=== PATIENT | male | born 1965 | race Caucasian/White ===

== ENCOUNTER 2024-11-11 05:02 | Observation (INO) | payer OTHER, SELFPAY ==
[2024-11-11] VITALS (15 sets, daily range): BP systolic 101–152; BP diastolic 62–94; BMI 30.3
--- NOTE | 2024-11-11 02:58 | ED.GENMED ---
History of Present Illness
General
Chief Complaint: Cardiac Symptoms
Source: patient and significant other
Time Seen by Provider: 11/11/24 02:36
Nursing documentation reviewed up to this point in time: agreed with
History of Present Illness
History of Present Illness:
Pleasant 59-year-old male presents to the emergency department with feelings of lightheadedness and feeling faint. He states that he felt his heart rate was irregular this afternoon. He does have a remote history of paroxysmal atrial fibrillation.
He is not maintained on any anticoagulation. He does take metoprolol. Patient states that he had 2 alcoholic beverages. He felt better and went to bed around 11 PM. At 2 AM he awakened with worsening symptoms. Denies fever, chills, nausea or
vomiting. He denies any pain but states that he feels that his heart is not pumping correctly.
Past History
Past History
ED Past Medical History: HTN
ED Past Surgical History: None
Social History
Tobacco: Non-smoker
Alcohol: Occasional
Phy Exam
Physical Exam
Physical Exam:
Physical Exam
Vital signs and allergy list reviewed and agreed with.
GENERAL: Alert , in [default value] apparent distress
EYE: pupils equal, EOMI, anicteric
NECK: Supple, no significant adenopathy. No masses. Trachea midline
ENT: Oropharynx is clear, mmm.
CARDIAC: Bradycardic rate and sinus rhythm . No M/R/G
LUNGS: Clear breath sounds bilaterally, no acute respiratory distress, no wheezes/rales/rhonchi
ABDOMEN: Soft, without focal tenderness, no r/g, no cvat. Normal BSx4q
NEUROLOGICAL: Alert and oriented, no focal neuro deficits
SKIN: Warm and dry, skin intact.
MUSCULOSKELETAL: No edema, well perfused. Moves all 4 extremities
PSYCH: Normal and appropriate interaction.
Course
Orders/Labs/Results
Orders:
Orders
11/11/24 02:34
Electrocardiogram (*1) Urgent
Reason for Study: Chest Pain
Cardiac Monitoring- Treatment ONCE
EKG- Treatment ONCE
IV Insert/Care/Rem.- Treatment PRN
11/11/24 02:42
Complete Blood Count/With Diff Urgent
Comprehensive Metabolic Panel Urgent
Troponin I Urgent
11/11/24 04:11
Admit/Transfer Patient As Directed
Co-Sign Provider:
Level of Care: Observation services
Assign to:: Telemetry
Physician / Group: Julio
Diagnosis: Bradycardia
Reason for Telemetry: Arrhythmia
Date to Stop Telemetry: 11/14/24
Time to Stop Telemetry: 11:00
PRN Pain Medication Management As Directed
May give lesser potent ordered pain med per pt: Yes
preference::
Protocol:: Medication orders for pain may be administered in a
manner that supports deferring to patient preference
when the pt is:
- Requesting an ordered lesser potent pain medication.
Least to most potent pain medications are defined
as: acetaminophen < NSAID < tramadol < opioids
(morphine, oxycodone, hydromorphone).
- Requesting a lesser dose of the same medication IF
ORDERED.
- Requesting a less intrusive route of administration
if both routes are prescribed by the provider (PO <
IV).
11/11/24 04:12
Code Status As Directed
Resuscitation Status: Full Code
11/11/24 05:13
0.9% Sodium Chloride [Nss (Preservative Free)] See Protocol IV PRN PRN
Acetaminophen [Tylenol] 650 mg PO Q4HPRN PRN
FOLic ACID [Folvite] 1 mg 0.9% Sodium Chloride 50 ml [Nss] 50 ml IV DAILYPRN
Lactated Ringers [Lr] 1,000 ml IV 125 mls/hr
Lorazepam [Ativan] 1 mg IV Q1HPRN PRN
Lorazepam [Ativan] 1 mg PO Q2HPRN PRN
Lorazepam [Ativan] 2 mg IV Q1HPRN PRN
11/11/24 05:13
CARDIOLOGY CONSULT Routine
Consulting Provider: Alida May
Was physician already notified: Yes
Reason for consult: Bradycardia
Case Management Consult Once
Case Management Consult: Other
Comment: Substance abuse counseling
DIETARY CONSULT Routine
Reason for Consult: Nutrition support, possible refeeding guidelines
Activity As Directed
Activity Level: Bedrest
EKG with chest pain [ECG as needed] As Directed
ECG as needed for:: Chest Pain
I/O [Intake/ Output] As Directed
Frequency: Per unit guidelines
MSAS SCORE As Directed
MSAS Score 0-4: Repeat MSAS every 2 hours until 0-4 for three consecutive assessments, then every 4 hours x 48
hours.
MSAS Score 5-7: For MILD withdrawl symptoms. Repeat MSAS and RASS every 2 hours
MSAS Score 8-11: For MODERATE withdrawal symptoms. Repeat MSAS and RASS every 1 hour. Consider ICU or IMU
level of care.
MSAS Score > 11: For SEVERE withdrawal symptoms. Repeat MSAS and RASS every 1 hour. Notify provider, consider
ICU level of care.
MSAS Additional Instructions: If no improvement or no decrease in score from severe to moderate within 12
hours, consult psychiatry
MSAS Notify Provider: Notify provider if patient requires more than 10 mg of Lorazepam in eight hour period.
Orthostatic Vital Signs As Directed
Orthostatic VS Frequency: BID
Pneumatic Compression Sleeves As Directed
Type: Knee high
Vital Signs As Directed
Frequency: Per unit guidelines
Weight As Directed
Frequency: Daily
Oxygen Therapy [O2 Therapy] [RESP] Routine
Titrate/Wean O2 to maintain O2 sat greater than (%): 94
DX Deep Vein Thrombosis Video Routine
11/11/24 05:23
Basic Metabolic Panel IN AM
Complete Blood Count/No Diff IN AM
Magnesium Urgent
TSH Reflex To Free T4 Routine
Troponin I Q6H
11/11/24 Breakfast
Regular
At Your Request: Full Participation
11/11/24 08:00
Apixaban [Eliquis] 5 mg PO BID
FOLic ACID [Folvite] 1 mg PO DAILY
Thiamine Injection 200 mg IV Q12
11/14/24 08:00
Thiamine HCl [Vitamin B1] 100 mg PO BID
11/14/24 11:00
DC Protocol for Telemetry ONCE
Abnormal Lab Results
11/11/24
02:42
MCH 31.8 H pg
(27.0-31.0)
Absolute Monos (auto) 0.7 H 10^3/uL
(0.1-0.6)
Monocytes % 10.2 H %
(1.7-9.3)
11/11/24 02:42
11/11/24 02:42
Vital Signs
Initial and Last Documented VS:
Initial Vital Signs
Temp Pulse Resp BP Pulse Ox
97.4 F 50 14 152/88 100
11/11/24 02:35 11/11/24 02:35 11/11/24 02:35 11/11/24 02:35 11/11/24 02:35
Last Documented Vital Signs
Temp Pulse Resp BP Pulse Ox
97.8 F 53 19 112/81 98
11/11/24 07:15 11/11/24 15:00 11/11/24 15:00 11/11/24 14:00 11/11/24 07:21
*Critical Care Note
Total Time (30-74mins, 75-104mins- exclusive of procedures): Not Applicable
Update Note
Update Note:
Spoke with Alida Cade, cardiology who recommended that patient be brought into the hospital with fluids. Hold metoprolol.
ED Attending Note
-
Portions of this chart may have been created with voice recognition software.� Occasional wrong word or��sound alike� substitutions may have occurred due to the inherent limitations of voice recognition software.
Discharge Plan
Departure
Patient Disposition: Admit
Date of Disposition: 11/11/24
Time of Disposition: 04:02
Presentation/result/management discussed w/ accepting MD/DO: Hospitalist
Condition: Good
Discharge Problem:
Symptomatic bradycardia
Interventions
Interventions:
*Risk Screen - Suicide Last Done: 11/11/24 02:35
*General Assessment Last Done: 11/11/24 02:39
*Neglect/Abuse Screening Last Done: 11/11/24 02:39
ED- Fall Risk Assessment Last Done: 11/11/24 02:39
*ED COVID-19 Vaccine History Last Done: 11/11/24 02:39
*Nursing Disposition Last Done: 11/11/24 15:08
ED- Pulmonary Assessment Last Done: 11/11/24 02:48
ED- Cardiac Assessment Last Done: 11/11/24 02:48
Discharge Date and Time
Discharge Date/Time: 11/11/24 15:09
[2024-11-11 02:59] LABS: % Basophils 0.6 % (0-2); % Eosinophils 3.3 % (0-6); % Immature Granulocytes 0.1 % (0-0.5); % Lymphocytes 43.6 % (20.5-51.1); % Monocytes 10.2 % (1.7-9.3); % Neutrophils 42.2 % (42.2-75.2); Absolute Eosinophils 0.2 10^3/uL (0-0.7); Absolute Monocytes 0.7 10^3/uL (0.1-0.6); Absolute Neutrophils 2.9 10^3/uL (1.4-6.5); Hematocrit 45.5 % (39.0-52.0); Hemoglobin 15.7 g/dL (13.0-18.0); Mean Corp Hgb Conc. 34.5 g/dL (33.0-37.0); Mean Corpuscular Hgb 31.8 pg (27.0-31.0); Mean Corpuscular Volume 92.3 fL (80.0-94.0); Mean Platelet Volume 10.4 fL (7.4-10.4); Nucleated Red Blood Cells % 0 % (-); Platelet Count 246 10^3/uL (130-400); Red Blood Cell Count 4.93 10^6/uL (4.70-6.10); Red Cell Dist. Width 12.4 % (11.5-14.5)
[2024-11-11 03:20] LABS: ALT (SGPT) 41 U/L (0-50); AST (SGOT) 34 U/L (17-59); Albumin 4.3 g/dl (3.5-5.0); Alkaline Phosphatase 79 U/L (38-126); Blood Urea Nitrogen 15 mg/dl (9-20); Calcium 10.1 mg/dl (8.4-10.2); Carbon Dioxide 27 mmol/L (22-30); Chloride 103 mmol/L (98-107); Estimated Creatinine Clearance 99 ml/min; Glucose 97 mg/dl (70-99); Sodium 138 mmol/L (135-145); Total Bilirubin 0.6 mg/dl (0.2-1.3); Total Protein 6.9 g/dl (6.3-8.2); eGFR > 60.00
[2024-11-11 03:33] LABS: Troponin I < 0.012 ng/ml
--- NOTE | 2024-11-11 04:13 | HPS.HSE ---
Family Physician
-
Family Physician: Kingsley Garcia
Chief Complaint
-
Lightheaded
History of Present Illness
Patient is a 59y M with PMH significant for A-Fib who presents to ED complaining of lightheadedness. Patient states that he developed some palpitations around dinner this evening. He had intermittent palpitations throughout the evening, but
states that he felt well when he went to bed. Patient woke in the middle of the night with recurrent palpitations and feeling very cold. He got up to use the bathroom and felt very lightheaded. He did not fall or lose consciousness. He developed
tingling in his hands and the lightheadedness persisted, prompting him to present to the ED for further evaluation.
Patient states that he had two beers this evening. He typically has 2-3 / day on weekdays. 5-6 daily on weekends.
He took his usual Eliquis and Toprol doses around 9PM this evening.
Patient feels less lightheaded here in the ED while lying supine. He continues to have occasional palpitations.
Medical History
Past Medical History
Past Medical History: Reports Other
Additional Past Medical History:
Paroxysmal Atrial Fibrillation
Past Surgical History: Reports Other
Additional Past Surgical History:
Right TKA x 2
Knee Arthroscopies
Left Foot Surgery
Left Wrist Surgery
Social History
Tobacco: Non-smoker
Alcohol: Daily
Drug: None
Personal:
Living: With Family
Family History
Family History: Other (Mother: Hypertension Father: Pancreatic Cancer)
Allergies / Home Medications
Allergies reflects when Allergies were last updated in [employer].
Home Medications with original date entered in [employer]
Allergy/Medication List:
Allergies
Allergy/AdvReac Type Severity Reaction Status Date / Time
amoxicillin Allergy Rash Verified 11/11/24 02:34
Home Medications
metoprolol succinate 25 mg tablet,extended release 24 hr (Toprol XL) 25 mg PO BID #60 tabs 10/21/22
apixaban 5 mg tablet (Eliquis) 5 mg PO BID 11/11/24
Review of Systems
-
History Source: Patient
A 12 point ROS was completed and negative except as noted: Yes
Constitutional: Reports Fatigue and Chills; Denies Fever
EENT: Denies Sore Throat
Respiratory: Denies Cough or Trouble Breathing
Cardiac: Reports Palpitations and Other (lightheaded); Denies Chest Pain or Diaphoresis
Abdomen/GI: Denies Abdominal Pain, Nausea, Vomiting or Diarrhea
: Denies Dysuria or Frequency
Musculoskeletal: Denies Joint Pain or Edema
Neurological: Reports Dizzy; Denies Headache
Psych: Denies Depression or Anxiety
Physical Exam
Vital Signs
Vital Signs
Temp Pulse Resp BP Pulse Ox
97.4 F 44 9 129/83 100
11/11/24 02:35 11/11/24 03:00 11/11/24 03:00 11/11/24 03:00 11/11/24 02:35
Physical Exam
General: Other (59y M in no acute distress.)
HEENT: Moist mucous membranes and PERRLA
Respiratory: Clear; No Wheezes, Rales or Rhonchi
Cardiac: S1/S2 and Bradycardia (with ectopy); No Murmur
GI: Soft, Non Tender, Non Distended and Normal Bowel Sounds
Musculoskeletal: No Clubbing, No Cyanosis and No Edema
Neuro: AO x 3 and Nonfocal/grossly intact
Laboratory Results
-
11/11/24 02:42
11/11/24 02:42
Laboratory Results
Total Bilirubin 0.6 mg/dl (0.2-1.3) 11/11/24 02:42
AST 34 U/L (17-59) 11/11/24 02:42
ALT 41 U/L (0-50) 11/11/24 02:42
Alkaline Phosphatase 79 U/L (38-126) 11/11/24 02:42
Troponin I < 0.012 ng/ml 11/11/24 02:42
Impression/Plan
-
A/P: Patient is a 59y M with PMH significant for A-Fib who presents to ED for evaluation of palpitations and lightheadedness.
Lightheadedness
Symptomatic Bradycardia
- Observe overnight on classroom monitor.
- Heart rates in the ED in the 40s at times.
- Patient does state that he has a 'low resting heart rate' at baseline.
- Not hypotensive, no other evident etiology of his symptoms.
- EKG / tele shows sinus bradycardia with occasional PACs / ectopy.
- Hold Toprol for now.
- Cardiology eval in AM for additional recommendations.
- IVFs overnight.
- Follow for new / worsening symptoms.
Paroxysmal Atrial Fibrillation
- Currently in sinus yannick.
- Continue Eliquis for stroke risk reduction.
- Holding Toprol for now as noted above.
DVT Prophylaxis: On Eliquis
Code Status: Full
[2024-11-11 05:33] LABS: Hematocrit 42.6 % (39.0-52.0); Hemoglobin 14.6 g/dL (13.0-18.0); Mean Corp Hgb Conc. 34.3 g/dL (33.0-37.0); Mean Corpuscular Hgb 31.3 pg (27.0-31.0); Mean Corpuscular Volume 91.4 fL (80.0-94.0); Mean Platelet Volume 10.1 fL (7.4-10.4); Platelet Count 241 10^3/uL (130-400); Red Blood Cell Count 4.66 10^6/uL (4.70-6.10); Red Cell Dist. Width 12.5 % (11.5-14.5)
[2024-11-11 06:03] LABS: Troponin I < 0.012 ng/ml
[2024-11-11 06:10] LABS: Blood Urea Nitrogen 14 mg/dl (9-20); Calcium 10.1 mg/dl (8.4-10.2); Carbon Dioxide 26 mmol/L (22-30); Chloride 104 mmol/L (98-107); Estimated Creatinine Clearance 109 ml/min; Glucose 97 mg/dl (70-99); Magnesium 2.1 mg/dl (1.6-2.3); Potassium 4.5 mmol/L (3.5-5.1); Sodium 135 mmol/L (135-145); eGFR > 60.00
[2024-11-11] MEDS: LR 1000 IV (06:23)
[2024-11-11] MEDS: FLUSH (NSS) 1 FLUSH IV (06:24)
[2024-11-11 06:39] LABS: TSH Reflex To Free T4 0.76 uIU/ml (0.47-4.68)
[2024-11-11] MEDS: FOLVITE 1 MG PO (08:19)
[2024-11-11] MEDS: THIAMINE INJECTION 200 MG IV (08:19)
[2024-11-11] MEDS: ELIQUIS 5 MG PO (08:19)
--- NOTE | 2024-11-11 09:37 | W.PN.UPDATE ---
Update Note
Progress Note Update
Admitted this morning by Dr. Kim for lightheadedness.
Patient developed palpitations last night followed by lightheadedness when he tries to get up in the middle of the night and go to the bathroom. His lightheadedness persisted even at rest. He noticed that while he was in the ER.
Currently lying in his bed in the ER. He has no lightheadedness. No palpitations. Heart monitor shows sinus bradycardia with heart rates in 40s. Blood pressure stable. + S1 plus S2 heard regular
Lab work including troponins are all within the normal limits. TSH normal.
Patient does drink coffee around 40 ounces of coffee a day which is lower than what he was doing before but also takes 2-3 beer daily and 5-6 beers on the weekend. He has noticed some increased intake this week. A month ago he had a respiratory
illness.
History of paroxysmal atrial fibrillation noted.
Based on the history suspect tachybradycardia syndrome. Await cardiology input.
For now continue to hold beta-boaz. Echo happening this morning.
Consider outpatient Holter.
DC home when okay from cardiology standpoint.
--- NOTE | 2024-11-11 09:52 | CON.CAR ---
Addendum entered and electronically signed by Zoltan Magaña DO 11/11/24 14:39:
I saw and examined the patient.
The Ginseng Farmer's note was reviewed and I agree with the note.
Comment:
GENERAL: no acute distress
EYE: sclera anicteric
NECK: Supple, no JVD, no carotid bruit appreciated
ENT: normal nose, moist mucosal membranes
CARDIAC: Bradycardic rate, regular rhythm, +S1/S2, no murmur, rubs, or gallops
CHEST/PULMONARY: Normal effort, clear breath sounds
ABDOMEN: Soft, without focal tenderness or distention
NEUROLOGICAL: Alert and oriented x3
SKIN: Warm and dry, no rash
PSYCH: Normal and appropriate interaction.
Telemetry demonstrates sinus bradycardia occasional PAC/brief PAT no more than 4 beats
A/P as below
PCP: Kingsley Garcia
Baffle Installer: Harry Taylor
Impression:
Presented 11/11/2024 with palpitations, dizziness, lightheadedness
Sinus bradycardia, unclear if symptomatic. Patient has longstanding history of asymptomatic sinus bradycardia
Paroxysmal atrial fibrillation
Chronic anticoagulation on Eliquis
Hypertension
Hyperlipidemia
Echo 07/26/2021: [facility]: LV: Normal size and funciton. EF 64%. No WMA. RV: Normal, LA: Normal, RA: Normal, MV: Mild MR, AV: Normal, TV: Normal
Echo 11/11/2024: Normal LV size, wall thickness, and systolic function, EF 50-55%, mild MR, trace TR, normal pericardium without effusion, mildly dilated aortic root, normal ascending aorta
PET Nuclear Stress 07/26/2021: [facility]: Preop knee. PET myocardial perfusion: Normal. ECG Nonspecific changes. EF : Normal 64%.
Plan:
Presented 11/11/2024 with palpitations, dizziness, lightheadedness and noted to have heart rates in 30s to 40s beats per minute as well as complaints of palpitations
-Concern for symptomatic bradycardia with sinus arrhythmia/PACs.
-Patient maintained on Toprol 25 mg twice a day as outpatient. Beta-boaz was held temporarily in past due to fatigue and noted worsening palpitations so resumed.
-Patient admits to having heart rate in 40s at baseline. Would consider reducing Toprol to 25 mg once a day
-TSH 0.76
-Continue to monitor on telemetry with consideration of outpatient monitor
-Blood pressure is reasonably controlled
-Continue Eliquis for history of PAF
-Normal troponin x 2
Additionally discussed at length with patient regarding importance of significant reduction in alcohol as this may notably contribute to atrial arrhythmias but may also dehydrate given alcohol's effect on ADH. This may have led to patient's
symptoms overnight which could have been related to dehydration. Patient states that he does not drink water during the day or hydrate. Patient reports significant improvement in symptoms during hospitalization in the emergency department after
receiving IV fluids and oral hydration. Review of telemetry demonstrates no evidence of significant bradycardia no reported evidence of atrial fibrillation.
Echocardiogram demonstrates normal heart function without significant valvular disease.
Lab work and evaluation unremarkable. Patient stable for discharge from cardiovascular standpoint with recommended follow-up on Thursday for event monitor followed by follow-up in the office. If new or worsening symptoms, patient to proceed back to
the emergency department for further evaluation. Patient verbalized understanding.
Original Note:
Consultation
Consultation Request
Date/Time Consultation Requested: 11/11/2024
Date/Time Consultation Performed: 11/11/2024
Requesting Provider: Dr. Kim
Performing Provider: Vane Dunne PA-C for Dr. Magaña
Reason for Consultation: Symptomatic bradycardia
Medical History
-
History of Present Illness:
Patient is a 57-year-old male with past medical history of paroxysmal atrial fibrillation, hypertension and mixed hyperlipidemia who presented to emergency department on 11/11/2024 with complaints of intermittent palpitations associated with
dizziness/lightheadedness. Patient reports last evening he was watching TV after having a few beers and noted some missed or skipped beats. He then went to sleep and awoke in the middle of the night to go to the bathroom and noted
lightheaded/dizziness as well as palpitations. Palpitations were very different than his prior atrial fibrillation. He then developed numbness and tingling in his hands and lightheaded sensation persisted prompting him to come to emergency
department. EKG showed sinus bradycardia with sinus arrhythmia, PACs. Heart rates were noted to be 30s to 40s on telemetry. He continued to have lightheaded sensation with normal blood pressure. Troponin negative x 2. Patient was provided IV
hydration with some improvement of symptoms. At time of this evaluation patient symptomatically has improved and denies chest pain, shortness of breath, dizziness or lightheadedness. He still feels occasional intermittent palpitations.
In past patient complained of fatigue and beta-boaz was discontinued but he noticed worsening palpitations and resumed taking 25 mg twice a day of Toprol. He remains on chronic anticoagulation with Eliquis.
Past medical history:
Paroxysmal atrial fibrillation
Chronic anticoagulation on Eliquis
Hypertension
Hyperlipidemia
Past Medical History
Past Medical History: Other (See HPI)
Past Surgical History: Orthopedic (Right TKA x 2, left foot surgery, left wrist surgery)
Social History
Tobacco: Non-Smoker
Alcohol: Daily (2-3 beers most nights of the week, 5 -6 beers on weekend days)
Drug: None
Personal:
Employment: Employed
Family History
Family History: Cancer (Father pancreatic cancer) and Hypertension (Mother)
Allergies / Home Medications
Allergy/AdvReac Type Severity Reaction Status Date / Time
amoxicillin Allergy Rash Verified 11/11/24 02:34
�Medication �Instructions �Recorded �Confirmed �Type
metoprolol succinate 25 mg 25 mg PO BID #60 tabs 10/21/22 11/11/24 Rx
tablet,extended release 24 hr
(Toprol XL)
apixaban 5 mg tablet (Eliquis) 5 mg PO BID 11/11/24 11/11/24 History
calcium carbonate (Tums) 200 mg PO DAILYPRN PRN heart burn 11/11/24 11/11/24 History
Review of Systems
-
History Source: Patient
All other systems: Negative unless noted
Physical Exam
Vital Signs
Temp Pulse Resp BP Pulse Ox
97.8 F 48 16 129/94 98
11/11/24 07:15 11/11/24 09:00 11/11/24 09:00 11/11/24 09:00 11/11/24 07:21
GEN: No distress, awake, Ox3
HEENT: supple, anicteric, mmm
LUNGS: CTA, no wheezes/rales
CV: Reg, S1/S2, no murmur, rub or gallop
ABD: soft, BS+, NT/ND
EXT: No edema, clubbing or cyanosis
NEURO: Gross non-focal
SKIN: No rash, warm, dry, pink
Lab Results
11/11/24 05:23
11/11/24 05:23
Troponin I Cancelled 11/11/24 11:13
Impression / Plan
-
PCP: Kingsley Garcia
Baffle Installer: Harry Taylor
Impression:
Presented 11/11/2024 with palpitations, dizziness, lightheadedness
Symptomatic bradycardia
Paroxysmal atrial fibrillation
Chronic anticoagulation on Eliquis
Hypertension
Hyperlipidemia
Echo 07/26/2021: [facility]: LV: Normal size and funciton. EF 64%. No WMA. RV: Normal, LA: Normal, RA: Normal, MV: Mild MR, AV: Normal, TV: Normal
PET Nuclear Stress 07/26/2021: [facility]: Preop knee. PET myocardial perfusion: Normal. ECG Nonspecific changes. EF : Normal 64%.
Plan:
Presented 11/11/2024 with palpitations, dizziness, lightheadedness and noted to have heart rates in 30s to 40s beats per minute as well as complaints of palpitations
-Concern for symptomatic bradycardia with sinus arrhythmia/PACs.
-Patient maintained on Toprol 25 mg twice a day as outpatient. Beta-boaz was held temporarily in past due to fatigue and noted worsening palpitations so resumed.
-Patient admits to having heart rate in 40s at baseline. Would consider reducing Toprol to 25 mg once a day
-TSH 0.76
-Will check an echocardiogram
-Continue to monitor on telemetry with consideration of outpatient monitor
-Blood pressure is reasonably controlled
-Continue Eliquis for history of PAF
-Abnormal troponin x 3
HPI 11/11/2024:
Patient is a 57-year-old male with past medical history of paroxysmal atrial fibrillation, hypertension and mixed hyperlipidemia who presented to emergency department on 11/11/2024 with complaints of intermittent palpitations associated with
dizziness/lightheadedness. Patient reports last evening he was watching TV after having a few beers and noted some missed or skipped beats. He then went to sleep and awoke in the middle of the night to go to the bathroom and noted
lightheaded/dizziness as well as palpitations. Palpitations were very different than his prior atrial fibrillation. He then developed numbness and tingling in his hands and lightheaded sensation persisted prompting him to come to emergency
department. EKG showed sinus bradycardia with sinus arrhythmia, PACs. Heart rates were noted to be 30s to 40s on telemetry. He continued to have lightheaded sensation with normal blood pressure. Troponin negative x 2. Patient was provided IV
hydration with some improvement of symptoms. At time of this evaluation patient symptomatically has improved and denies chest pain, shortness of breath, dizziness or lightheadedness. He still feels occasional intermittent palpitations.
In past patient complained of fatigue and beta-boaz was discontinued but he noticed worsening palpitations and resumed taking 25 mg twice a day of Toprol. He remains on chronic anticoagulation with Eliquis.
Data Reviewed
-
EKG: Report Reviewed by me, Discussed with Physician, Discussed with Patient and Discussed with Family
Labs: Labs Reviewed by me, Discussed with Physician, Discussed with Patient and Discussed with Family
Old Records: Reviewed
--- NOTE | 2024-11-11 13:44 | CM ---
Cm reviewed medical records. CM met with patient and in room. Patient confirmed demographics. patient lives independently with his . Patient does not have a history of VN, SNF or DME. Patient is active with his PCP.
CM discussed drug and alcohol resources. Patient declined discussion.
OBS letter given.
PLAN: home no needs.
--- NOTE | 2024-11-11 16:19 | W.DCSUMMARY ---
Discharge Summary
Discharge Data
Date of Admission: 11/11/24
Date of Discharge: 11/11/24
-
Pending Results: No
Hospital Course
Primary diagnosis:
Sinus bradycardia unclear if symptomatic
Paroxysmal atrial fibrillation on Eliquis
Secondary diagnosis:
Essential hypertension
Hospital course:
Patient with history of paroxysmal fibrillation on Eliquis and metoprolol presented with palpitations yesterday evening and then in the morning when he got up from the bed to go to the bathroom he felt lightheaded and had tingling in his fingers.
Since his symptoms were severe he presented to the hospital. No history of syncope.
On admission here he was noted to be severely bradycardic but in sinus rhythm. His blood pressure was stable during the stay here unclear if this is symptomatic bradycardia cardia or his tachybradycardia syndrome. His TSH was normal. Lab work was
unremarkable.
No evidence of CO. He was seen by cardiology and had an echocardiogram which showed EF of 50 to 55% and no significant valvular abnormality.
Cardiology recommended decreasing the dose of Toprol to once a day and then will have a Holter monitor as an outpatient.
He also drinks 2-3 beers daily and 5-6 beers on the weekend and he was advised that atrial fibrillation can be triggered with excess amount of alcohol and advised to cut down and for better health to stop it.
Consultants on board:
Cardiology-Zoltan Bojorquez
Discharge Plan
-
Patient Disposition: Home (Routine Discharge)
Discharge Diagnosis/Procedures: Lightheadedness possibly secondary to symptomatic bradycardia; paroxysmal atrial fibrillation
Diet: Regular
Activity: As tolerated
Driving Restrictions: As prior to admission
Bathing Restrictions: None
Others Tests: 5-day outpatient monitor - cardiology will contact you to facilitate
Referrals:
Vane Dunne PA-C [Specified Professional Personl] - 12/05/24 7:40 am (You have cardiology follow-up with Vane Dunne PA-C on December 05 at 7:40 AM in [address] [facility]. If you are unable to make this appointment please call [phone] to
reschedule)
Kingsley Garcia MD [Family Provider] - in less than 1 week
Prescriptions:
Continued
Eliquis 5 mg Tablet
5 mg PO BID
calcium carbonate [Tums] 200 mg calcium (500 mg) Tablet,Chewable
200 mg PO DAILYPRN PRN (Reason: heart burn)
Changed
metoprolol succinate [Toprol XL] 25 mg tablet extended release 24 hr
25 mg PO DAILY Qty: 60 0RF
Rx Instructions:
Dose decreased on this admission
Discharge Orders:
Discharge Patient (As Directed); Ordered 11/11/24
Ordered By: Kamron Ybarra
Discharge Date and Time
Discharge Date/Time: 11/11/24 15:18
Print Language: [id number]
== END 2024-11-11 15:18 | disposition home or self-care (01) ==
LOC: ED 05:02
PROVIDERS: ADMITTING PHYSICIAN Hospitalist; ATTENDING PHYSICIAN Internal Medicine; EMERGENCY PHYSICIAN Student in an Organized Health Care Education/Training Program; FAMILY PHYSICIAN Internal Medicine; OTHER PHYSICIAN Internal Medicine Cardiovascular Disease
DX: I49.5 Sick sinus syndrome (principal); I48.0 Paroxysmal atrial fibrillation; R42 Dizziness and giddiness; R07.9 Chest pain, unspecified; R00.2 Palpitations; R20.2 Paresthesia of skin; I10 Essential (primary) hypertension; E78.5 Hyperlipidemia, unspecified; E78.2 Mixed hyperlipidemia; I34.0 Nonrheumatic mitral (valve) insufficiency; I49.8 Other specified cardiac arrhythmias; Z82.49 Family history of ischemic heart disease and other diseases of the circulatory system; Z79.01 Long term (current) use of anticoagulants; Z98.890 Other specified postprocedural states
CPT/HCPCS: 80048; 80053; 83735; 84443; 84484; 85025; 85027; 93005; 93306; 96374; 99284; G0378